=== PATIENT | female | born 1980 | race African-American/Black ===

== ENCOUNTER 2018-04-16 10:43 | Emergency (ER) | payer MEDICAID ==
[~2018-04-16] VITALS: Ht 172.7 cm; Wt 106.7 kg
[2018-04-16 11:01] VITALS: BP 112/81
== END 2018-04-16 17:41 | disposition left against medical advice (07) ==
LOC: ER 14:06
DX: K08.89 Other specified disorders of teeth and supporting structures (principal); Z53.21 Procedure and treatment not carried out due to patient leaving prior to being seen by health care provider